=== PATIENT | female | born 1935 | race Caucasian/White ===

== ENCOUNTER 2019-04-24 12:04 | Outpatient (CLI) | payer MEDICARE ==
--- NOTE | 2019-04-24 14:05 | ULT ---
CAROTID DOPPLER: DATE: 04/24/2019. PROVIDED CLINICAL HISTORY: Vertigo. FINDINGS: Campos scale and color Doppler sonography with spectral analysis was performed of the extracranial sanchez tid system bilaterally. Scattered atherosclerotic plaque is demonstrated. No evidence for a hemodyn amically significant internal carotid artery stenosis by peak systolic velocity or ratio criteria. A ntegrade flow is seen in the vertebral arteries. IMPRESSION: No sonographic evidence for a hemodynamically significant internal carotid artery stenosis. POS: OFF
== END 2019-04-24 12:05 | disposition home or self-care (01) ==
LOC: BICULT 12:04
PROVIDERS: ATTEND Internal Medicine
DX: R42 Dizziness and giddiness (principal); R55 Syncope and collapse
CPT/HCPCS: 93880

== ENCOUNTER 2019-05-24 12:12 | Outpatient (CLI) | payer MEDICARE ==
--- NOTE | 2019-05-24 13:37 | MRI ---
MRI LUMBAR SPINE NONCONTRAST: HISTORY: Bilateral lower extremity weakness. COMPARISON: 06/30/2017 FINDINGS: Stable heterogeneous marrow signal intensity of the lumbar vertebra due to a combination of Modic and senescent changes. Type I-type II Modic changes at L5-S1. Spondylolisthesis: 3.2 mm of retrolisthesis of T12 upon L1, 3.8 mm of retrolisthesis of L1 upon L2, 2 .9 mm of anterolisthesis of L4 upon L5. Appropriate signal intensity of the visualized solid organs and paraspinal muscles. Conus medullaris terminates at the mid L1 level. T11-T12: Mild central canal stenosis. T12-L1:Desiccation with mild loss of disc space height. No significant central canal stenosis. Right neural foramen is patent. Mild left foraminal narrowing. L1-L2:Desiccation with mild loss of disc space height. Small left and right paracentral disc bulges. Mild central canal stenosis. Right neural foramen is patent. Mild to moderate left foraminal narrowing. L2-L3:Desiccation without significant loss of disc space height. Generalized disc bulge, ligament fla vum thickening and facet result in mild central canal stenosis. Mild bilateral foraminal narrowing. L3-L4:Desiccation without significant loss of disc space height. Left and right paracentral disc bulg es along with posterior element hypertrophy result in mild central canal stenosis. Bilaterally, neural foramina are patent. L4-L5:Desiccation without significant loss of disc space height. Broad-based disc bulge, ligament fla vum thickening and facet result in moderate central canal stenosis. There is fluid in both facet joints. Moderate bilateral neural foraminal narrowing. L5-S1:Desiccation with severe loss of disc space height. Broad-based disc bulge abuts the ventral the angeline sac. No significant central canal stenosis. There is bilateral facet hypertrophy with moderate to severe bilateral neural foraminal narrowing. T2 hyperintensity at the S2 and S3 level is incompletely evaluated. Findings unchanged from the previ ous exam. IMPRESSION: 1. Multilevel degenerative changes of lumbar spine as described above. Moderate central canal stenosi s at L4-L5. Moderate bilateral foraminal narrowing at L4-L5. Moderate to severe bilateral neural foraminal narrowing at L5-S1. 2. Spondylolisthesis as described above Transcribed Date/Time: 05/24/2019 1:46 PM
== END 2019-05-24 12:13 | disposition home or self-care (01) ==
LOC: BICMRI 12:12
PROVIDERS: ATTEND Psychiatry & Neurology Neurology
DX: R29.898 Other symptoms and signs involving the musculoskeletal system (principal); M48.061 Spinal stenosis, lumbar region without neurogenic claudication; M48.07 Spinal stenosis, lumbosacral region; M47.816 Spondylosis without myelopathy or radiculopathy, lumbar region; M43.16 Spondylolisthesis, lumbar region; M43.15 Spondylolisthesis, thoracolumbar region
CPT/HCPCS: 72148

== ENCOUNTER 2019-07-27 12:50 | Outpatient (CLI) | payer MEDICARE ==
--- NOTE | 2019-07-27 13:38 | MMO ---
Bilateral MAMMO Bilat Screen [facility]. CLINICAL HISTORY: Patient is 83 years old and is seen for screening. The patient has the following family history of breast cancer: paternal grandmother. The patient has no personal history of cancer. VIEWS: The views performed were: bilateral craniocaudal with tomosynthesis and bilateral mediolateral oblique with tomosynthesis. FILMS COMPARED: The present examination has been compared to prior imaging studies performed at [facility] on 07/25/2018, and at [facility] on 08/05/2014, 08/06/2015 and 01/14/2017. This study has been interpreted with the assistance of computer-aided detection. MAMMOGRAM FINDINGS: There are scattered fibroglandular densities. Finding 1: There are stable benign appearing calcifications seen in both breasts. Finding 2: There are stable benign appearing densities seen in both breasts. There are no suspicious masses, suspicious calcifications, or new areas of architectural distortion. IMPRESSION: THERE IS NO MAMMOGRAPHIC EVIDENCE OF MALIGNANCY. A ROUTINE FOLLOW-UP MAMMOGRAM IN 1 YEAR IS RECOMMENDED. THE RESULTS OF THIS EXAM WERE SENT TO THE PATIENT. ACR BI-RADS Category 2 - Benign finding MAMMOGRAPHY NOTE: 1. A negative mammogram report should not delay a biopsy if a dominant of clinically suspicious mass is present. 2. Approximately 10% to 15% of breast cancers are not detected by mammography. 3. Adenosis and dense breasts may obscure an underlying neoplasm. Reported by: KURT GALDAMEZ MD Electonically Signed: [id number]
== END 2019-07-27 12:51 | disposition home or self-care (01) ==
LOC: BICMAMMO 12:50
PROVIDERS: ATTEND Internal Medicine
DX: Z12.31 Encounter for screening mammogram for malignant neoplasm of breast (principal); Z80.3 Family history of malignant neoplasm of breast
CPT/HCPCS: 77063; 77067

== ENCOUNTER 2019-08-21 12:52 | Outpatient (CLI) | payer MEDICARE ==
--- NOTE | 2019-08-21 13:54 | ULT ---
Bilateral renal ultrasound CLINICAL INDICATION: Renal Insufficiency COMPARISON: None FINDINGS: Right kidney: No solid mass, or hydronephrosis. Left kidney: No solid mass, or hydronephrosis. Urinary bladder: Normal IMPRESSION: Unremarkable exam.
== END 2019-08-21 12:53 | disposition home or self-care (01) ==
LOC: BICULT 12:52
PROVIDERS: ATTEND Internal Medicine
DX: R80.9 Proteinuria, unspecified (principal)
CPT/HCPCS: 76770

== ENCOUNTER 2019-11-19 08:45 | Outpatient (CLI) | payer MEDICARE ==
--- NOTE | 2019-11-19 09:18 | CT ---
CT Stone Protocol: 11/19/2019 12:00 AM HISTORY: Microhematuria COMPARISON: 10/13/2015 TECHNIQUE: Multiple contiguous axial images were obtained and a CT of the abdomen and pelvis without IV contrast . Coronal and sagittal reformats were performed. FINDINGS: This examination is limited for the evaluation of solid organs and vascular structures due to the lac k of intravenous contrast. Lower Chest: Large hiatal hernia Abdomen: Liver: within normal limits. Bile Ducts: Normal caliber. Gallbladder: Removed Pancreas: within normal limits. Spleen: within normal limits. Adrenals: within normal limits. Kidneys: within normal limits. Pelvis: Reproductive Organs: No pelvic masses. Ureters: within normal limits. Bladder: within normal limits. Bowel: Normal caliber. Diverticulosis is seen in the sigmoid colon Mesenteric Lymph Nodes: No enlarged mesenteric lymph nodes. Peritoneum: No ascites or free air, no fluid collection. Vessels: Atherosclerotic calcifications in the aorta Retroperitoneum: within normal limits. Abdominal Wall: within normal limits. Bones: Degenerative changes in the spine. IMPRESSION: 1. No evidence of acute intraabdominal or pelvic abnormality. 2. Large hiatal hernia 3. Diverticulosis
== END 2019-11-19 08:46 | disposition home or self-care (01) ==
LOC: BICCT 08:45
PROVIDERS: ATTEND Urology
DX: R31.29 Other microscopic hematuria (principal); K44.9 Diaphragmatic hernia without obstruction or gangrene; K57.30 Diverticulosis of large intestine without perforation or abscess without bleeding
CPT/HCPCS: 74176

== ENCOUNTER 2021-01-01 14:11 | Outpatient (CLI) | payer MEDICARE | END 2021-01-01 14:12 | disposition home or self-care (01) | LOC: BICCT 14:11 | PROVIDERS: ATTEND Internal Medicine Cardiovascular Disease | DX: I48.0 Paroxysmal atrial fibrillation (principal); I70.0 Atherosclerosis of aorta; I25.10 Atherosclerotic heart disease of native coronary artery without angina pectoris; K44.9 Diaphragmatic hernia without obstruction or gangrene; Z90.49 Acquired absence of other specified parts of digestive tract | CPT/HCPCS: 71250 ==

== ENCOUNTER 2021-08-27 12:28 | Outpatient (CLI) | payer MEDICARE | END 2021-08-27 12:29 | disposition home or self-care (01) | LOC: BICMAMMO 12:28 | PROVIDERS: ATTEND Internal Medicine | DX: Z12.31 Encounter for screening mammogram for malignant neoplasm of breast (principal); Z80.3 Family history of malignant neoplasm of breast | CPT/HCPCS: 77063; 77067 ==

== ENCOUNTER 2022-02-26 10:34 | Outpatient (CLI) | payer MEDICARE ==
[2022-02-26 12:28] LABS: #Basophils 0.1 10x3/uL (0.0-0.2); #Eosinphils 0.2 10x3/uL (0.0-0.5); #Monocytes 0.9 10x3/uL (0.0-1.1); #Neutrophils 5.5 10x3/uL (1.5-8.4); %Basophils 0.8 % (0.0-2.0); %Eosinophils 2.1 % (0.0-6.0); %Lymphocytes 22.1 % (18.0-47.0); %Monocytes 10.6 % (0.0-10.0); %Neutrophils 64.2 % (40.0-75.0); Hemoglobin 12.7 g/dL (12.0-15.5); Mean Corpuscular HGB CONC 33.5 g/dL (32.0-36.0); Mean Corpuscular Hemoglobin 33.2 pg (27.0-33.0); Mean Platelet Volume 9.6 fl (7.4-10.4); Platelet Count 306 10x3/uL (150-450); RBC Distribution Width 14.6 % (11.5-14.5); Red Blood Cell (RBC) Count 3.83 10x6/uL (3.90-5.03); White Blood Cell (WBC) Count 8.6 10x3/uL (3.5-10.5)
[2022-02-26 12:48] LABS: ALT (SGPT) 26 U/L (8-55); AST (SGOT) 22 U/L (5-34); Albumin 4.4 g/dL (3.4-4.8); Alkaline Phosphatase 76 U/L (40-110); Anion Gap 14 mmol/L (10-20); BUN (Urea Nitrogen) 23 mg/dL (9.8-20.1); Bilirubin, Total 0.5 mg/dL (0.2-1.2); Calc. Creatinine Clearance 0 mL/min (70-130); Calcium 10.2 mg/dL (7.8-10.44); Carbon Dioxide 23 mmol/L (23-31); Chloride 103 mmol/L (98-107); Globulin 2.7 g/dL (2.4-3.5); Glucose 100 mg/dL (83-110); Potassium 4.6 mmol/L (3.5-5.1); Protein, Total 7.1 g/dL (5.8-8.1); Sodium 135 mmol/L (136-145)
[2022-02-26 19:08] LABS: SARS-CoV-2 PCR by NAA Not Detected (NotDetected)
== END 2022-02-26 10:35 | disposition home or self-care (01) ==
LOC: LABBT 10:34
PROVIDERS: ATTEND Surgery
DX: Z01.818 Encounter for other preprocedural examination (principal); K21.9 Gastro-esophageal reflux disease without esophagitis; K44.9 Diaphragmatic hernia without obstruction or gangrene; Z20.822 Contact with and (suspected) exposure to COVID-19
CPT/HCPCS: 80053; 85025; U0003; U0005

== ENCOUNTER 2022-02-26 10:45 | Inpatient (IN) | payer MEDICARE ==
[2022-03-01 15:02] VITALS: BMI 29.1
[2022-03-03] MEDS ORDERED: Bupivacaine 0.25% 10 ML VIAL ONE (09:44)
[2022-03-03] MEDS ORDERED: Lidocaine 1% w/Epinephrine 1:100K 20 ML VIAL ONE (09:44)
[2022-03-03] MEDS ORDERED: Fentanyl 250 MCG/5 ML VIAL ONE (09:49)
[2022-03-03] MEDS ORDERED: Famotidine/PF 20 mg/2ml Vial ONE (09:49)
[2022-03-03] MEDS ORDERED: Phenylephrine 10 MG/ML VIAL ONE (09:49)
[2022-03-03] MEDS ORDERED: hydrALAZINE 20 MG/ML VIAL ONE (09:49)
[2022-03-03] MEDS ORDERED: ceFAZolin (BATCH) 2 GM/100 ML BAG ONE (09:56)
[2022-03-03] MEDS ORDERED: Ondansetron PF 4 MG/2 ML Vial ONE (10:12)
[2022-03-03] MEDS ORDERED: Rocuronium Bromide 10 MG/ML (10ML VIAL) ONE (10:12)
[2022-03-03] MEDS ORDERED: Lidocaine 1% PF 5 ML VIAL ONE (10:12)
[2022-03-03] MEDS ORDERED: Glycopyrrolate 0.2 MG/ML 5 ML SYRINGE ONE (10:12)
[2022-03-03] MEDS ORDERED: PROPOFOL 200 MG/20 ML VIAL ONE (10:12)
[2022-03-03] MEDS ORDERED: Promethazine HCl 25 MG/ML VIAL IVPB PRN (10:58)
[2022-03-03] MEDS ORDERED: PACU-Morphine 4MG/ML VIAL SLOW IVP PRN (10:58)
[2022-03-03] MEDS ORDERED: Promethazine HCl 25 MG/ML VIAL IM PRN ×2 (10:58→12:48)
[2022-03-03] MEDS ORDERED: fentaNYL Citrate/PF 100 MCG/2 ML SYRINGE ONE (12:25)
[2022-03-03] MEDS ORDERED: Dextrose 5% in Water 1,000 ML IV PRN (12:48)
[2022-03-03] MEDS ORDERED: diphenhydrAMINE 50 MG/ML VIAL IVP PRN (12:48)
[2022-03-03] MEDS ORDERED: Morphine 2 MG/ML VIAL SLOW IVP PRN (12:48)
[2022-03-03] MEDS ORDERED: Ondansetron PF 4 MG/2 ML Vial IVP PRN (12:48)
[2022-03-03] MEDS ORDERED: hydrALAZINE 20 MG/ML VIAL SLOW IVP PRN (12:48)
[2022-03-03] MEDS ORDERED: Hydrocodone-Acetamin 15 ML UDCUP PO PRN (12:48)
[2022-03-03] MEDS ORDERED: Morphine 4 MG/ML VIAL SLOW IVP PRN (12:48)
[2022-03-03] MEDS ORDERED: Dextrose 50% Abboject 50 ML SYRINGE SLOW IVP PRN (12:48)
[2022-03-03] MEDS ORDERED: ceFAZolin 2 GM/Dextrose 50 ML 2 GM in Premix Bag 1 BAG IVPB SCH (14:00)
[2022-03-03] MEDS: D5 1/2 NS w/20 mEq KCL 1,000 ML IV SCH ×3 (14:06→23:30)
[2022-03-03] MEDS: ceFAZolin (BATCH) 2 GM in Premix Bag 1 BAG IVPB SCH ×2 (14:15→21:27)
[2022-03-03] MEDS: Ketorolac Tromethamine 30 MG/ML VIAL IVP SCH ×2 (17:53→23:33)
[2022-03-04 04:53] VITALS: BP 135/64; TEMP 98.4
[2022-03-04] MEDS: D5 1/2 NS w/20 mEq KCL 1,000 ML IV SCH (04:55)
[2022-03-04] MEDS: Ketorolac Tromethamine 30 MG/ML VIAL IVP SCH (04:57)
[2022-03-04 07:18] LABS: Hemoglobin 10.5 g/dL (12.0-16.0); Mean Corpuscular HGB CONC 33.9 g/dL (32.0-36.0); Mean Corpuscular Hemoglobin 36.3 pg (27.0-31.0); Mean Platelet Volume 7.2 fL (7.4-10.4); Platelet Count 204 thou/uL (130-400); RBC Distribution Width 12.8 % (11.5-14.5); Red Blood Cell (RBC) Count 2.89 mill/uL (4.20-5.40); White Blood Cell (WBC) Count 8.5 thou/uL (4.8-10.8)
[2022-03-04 07:19] LABS: #Eosinphils 0.1 thou/uL (0.0-0.7); #Lymphocytes 1.7 thou/uL (1.20-3.40); #Monocytes 0.9 thou/uL (0.11-0.59); #Neutrophils 5.8 thou/uL (1.40-6.50); %Basophils 0.4 % (0.0-1.0); %Eosinophils 1.6 % (0.0-10.0); %Lymphocytes 19.3 % (21.0-51.0); %Monocytes 10.8 % (0.0-10.0); %Neutrophils 67.9 % (42.0-75.0)
[2022-03-04 07:37] LABS: Anion Gap 12 mmol/L (10-20); BUN (Urea Nitrogen) 19 mg/dL (9.8-20.1); Calc. Creatinine Clearance 38 mL/min (70-130); Calcium 8.2 mg/dL (7.8-10.44); Carbon Dioxide 23 mmol/L (23-31); Chloride 108 mmol/L (98-107); Glucose 99 mg/dL (83-110); Potassium 4.5 mmol/L (3.5-5.1); Sodium 138 mmol/L (136-145)
[2022-03-04 08:12] LABS: MDiff Complete? YES; Macrocytosis SLIGHT = 6-15 cells (100X) (0-5/hpf); Platelet Morphology Comment Appears Adequate; Polychromasia SLIGHT = 2-3 cells (100X) (0-2/hpf)
[2022-03-04] MEDS ORDERED: Enoxaparin Sodium 40 MG/0.4 ML SYRINGE SC SCH (09:00)
[2022-03-04] MEDS ORDERED: Pantoprazole 40 MG VIAL IVP SCH (09:00)
== END 2022-03-04 11:00 | disposition home or self-care (01) | DRG 328 ==
LOC: SURG A 03-03 07:11
PROVIDERS: ADMIT Surgery; ATTEND Surgery
PROC: 0BQT4ZZ Repair Diaphragm, Percutaneous Endoscopic Approach (ICD-10-PCS; principal; 2022-03-03)
PROC: 0DQ44ZZ Repair Esophagogastric Junction, Percutaneous Endoscopic Approach (ICD-10-PCS; 2022-03-03)
PROC: 8E0W4CZ Robotic Assisted Procedure of Trunk Region, Percutaneous Endoscopic Approach (ICD-10-PCS; 2022-03-03)
DX: K44.9 Diaphragmatic hernia without obstruction or gangrene (principal); K21.9 Gastro-esophageal reflux disease without esophagitis; Z20.822 Contact with and (suspected) exposure to COVID-19; I10 Essential (primary) hypertension; J30.9 Allergic rhinitis, unspecified; M81.0 Age-related osteoporosis without current pathological fracture; Z91.040 Latex allergy status; Z91.048 Other nonmedicinal substance allergy status; Z88.8 Allergy status to other drugs, medicaments and biological substances; Z79.51 Long term (current) use of inhaled steroids; Z79.899 Other long term (current) drug therapy; Z87.440 Personal history of urinary (tract) infections; Z90.49 Acquired absence of other specified parts of digestive tract
CPT/HCPCS: 36415; 80048; 85025; C9113; J0360; J0690; J1650; J1885; J2370; J2405; J2704; J3010; J3480; S0020; S0028

== ENCOUNTER 2022-12-23 09:00 | Outpatient (CLI) | payer MEDICARE | END 2022-12-23 09:01 | disposition home or self-care (01) | LOC: LABBT 09:00 | PROVIDERS: ATTEND Internal Medicine Cardiovascular Disease | DX: Z01.812 Encounter for preprocedural laboratory examination (principal); I48.0 Paroxysmal atrial fibrillation | CPT/HCPCS: 80053; 81003; 85027; 85610; 85730; 86850; 86900; 86901; 93005; 93010 ==

== ENCOUNTER 2022-12-23 11:00 | Inpatient (IN) | payer MEDICARE ==
[2022-12-23 10:24] LABS: Bilirubin Neg (Negative); Blood, Urine Negative (Negative); Clarity Cloudy (Clear); Glucose, Urine (Dipstick) Normal (Negative); Ketone, Urine Negative (Negative); Leukocyte 100 (Negative); Nitrite Negative (Negative); Protein, Urine (Dipstick) Negative (Neg-Trace); Specific Gravity, Urine 1.015 (1.005-1.030); Urobilinogen Normal mg/dL (Less than 2)
[2022-12-23 10:24] LABS: Hemoglobin 11.8 g/dL (12.0-15.5); Mean Corpuscular HGB CONC 32.9 g/dL (32.0-36.0); Mean Corpuscular Hemoglobin 32.8 pg (27.0-33.0); Mean Corpuscular Volume 99.7 fl (81.6-98.3); Platelet Count 276 10x3/uL (150-450); RBC Distribution Width 14.6 % (11.5-14.5); White Blood Cell (WBC) Count 7.4 10x3/uL (3.5-10.5)
[2022-12-23 10:39] LABS: PTT 34.8 sec (22.0-33.0); Prothrombin Time 11.1 sec (9.5-12.1)
[2022-12-23 10:45] LABS: ALT (SGPT) 26 U/L (8-55); AST (SGOT) 26 U/L (5-34); Albumin 4.3 g/dL (3.4-4.8); Alkaline Phosphatase 75 U/L (40-110); Anion Gap 14 mmol/L (10-20); BUN (Urea Nitrogen) 24 mg/dL (9.8-20.1); Bilirubin, Total 0.4 mg/dL (0.2-1.2); Calc. Creatinine Clearance 0 mL/min (70-130); Calcium 9.5 mg/dL (7.8-10.44); Carbon Dioxide 19 mmol/L (23-31); Chloride 108 mmol/L (98-107); Estimated GFR 41; Globulin 2.8 g/dL (2.4-3.5); Glucose 101 mg/dL (83-110); Potassium 4.2 mmol/L (3.5-5.1); Protein, Total 7.1 g/dL (5.8-8.1); Sodium 137 mmol/L (136-145)
[2022-12-29] MEDS ORDERED: CEFAZOLIN 1 GM VIAL ONE (07:55)
[2022-12-29] MEDS ORDERED: Protamine Sulfate 50 MG/5 ML VIAL ONE (07:55)
[2022-12-29] MEDS ORDERED: Heparin 10,000 UNITS/ 10 ML VIAL ONE (07:55)
[2022-12-29] MEDS ORDERED: Esmolol 100 MG/10 ML VIAL ONE (12:49)
[2022-12-29] MEDS ORDERED: Ondansetron PF 4 MG/2 ML Vial ONE (12:49)
[2022-12-29] MEDS ORDERED: Lidocaine 1% PF 5 ML VIAL ONE (12:49)
[2022-12-29] MEDS ORDERED: PROPOFOL 200 MG/20 ML VIAL ONE (12:49)
[2022-12-29] MEDS ORDERED: Rocuronium Bromide 10 MG/ML (10ML VIAL) ONE (12:49)
[2022-12-29] MEDS ORDERED: Dexamethasone 20 MG/5 ML VIAL ONE (12:49)
[2022-12-29] MEDS ORDERED: SUGAMMADEX SODIUM 200 MG/2 ML VIAL ONE (12:55)
[2022-12-29] MEDS ORDERED: FENTANYL 50 MCG/ML 1 ML VIAL ONE (12:55)
[2022-12-29] MEDS ORDERED: Ondansetron ODT 4 MG TAB PO PRN (16:10)
[2022-12-29] MEDS ORDERED: Azelastine 137 MCG/Spray 30 ML NS PRN (16:12)
[2022-12-29] MEDS ORDERED: Acetaminophen/Codeine 30-300mg Tablet PO PRN ×2 (16:15)
[2022-12-29 16:38] LABS: SARS-CoV-2 NAA Rapid Test Not Detected (NotDetected)
[2022-12-29] MEDS ORDERED: Iopamidol 370 76% 100 ML VIAL ONE (17:08)
[2022-12-29 17:37] VITALS: BMI 25.6
[2022-12-29] MEDS: Apixaban 5 MG TAB PO SCH (20:12)
[2022-12-29] MEDS ORDERED: Melatonin 3 MG TAB PO SCH (21:00)
[2022-12-29] MEDS ORDERED: Ezetimibe 10 MG TAB PO SCH (21:00)
[2022-12-30] MEDS ORDERED: Calcitriol 0.25 MCG CAP PO SCH (09:00)
[2022-12-30] MEDS ORDERED: Fish Oil 1,000 MG CAP PO SCH (09:00)
[2022-12-30] MEDS ORDERED: Losartan 25 MG TAB PO SCH (09:00)
[2022-12-30] MEDS ORDERED: Cyanocobalamin (Vitamin B-12) 1,000 MCG TAB PO SCH (09:00)
[2022-12-30] MEDS: Apixaban 5 MG TAB PO SCH (09:44)
[2022-12-30 11:38] VITALS: BP 164/70; TEMP 98
[2023-01-01] MEDS ORDERED: FLU VACC QS2022-23(65YR UP)/PF 240 MCG/0.7 ML SYRINGE IM ONE (18:15)
== END 2022-12-30 12:23 | disposition home or self-care (01) | DRG 274 ==
LOC: SURG A 12-29 07:15 → 2NO 12-29 17:33
PROVIDERS: ADMIT Internal Medicine Cardiovascular Disease; ATTEND Internal Medicine Cardiovascular Disease
PROC: 02L73DK Occlusion of Left Atrial Appendage with Intraluminal Device, Percutaneous Approach (ICD-10-PCS; principal; 2022-12-29)
PROC: B24BZZ4 Ultrasonography of Heart with Aorta, Transesophageal (ICD-10-PCS; 2022-12-29)
DX: I48.0 Paroxysmal atrial fibrillation (principal); Z00.6 Encounter for examination for normal comparison and control in clinical research program; Z20.822 Contact with and (suspected) exposure to COVID-19; M19.90 Unspecified osteoarthritis, unspecified site; E78.5 Hyperlipidemia, unspecified; I10 Essential (primary) hypertension; Z79.01 Long term (current) use of anticoagulants; Z91.040 Latex allergy status; Z91.048 Other nonmedicinal substance allergy status; Z88.8 Allergy status to other drugs, medicaments and biological substances; Z79.899 Other long term (current) drug therapy; Z98.890 Other specified postprocedural states
CPT/HCPCS: 33340; 80053; 81003; 85027; 85347; 85610; 85730; 86850; 86900; 86901; 93306; 93312; C1725; C1759; C1760; C1769; C1894; J0690; J1100; J1644; J2405; J2704; J2720; J3010; Q9967; U0002

== ENCOUNTER 2023-02-18 09:47 | Day surgery (SDC) | payer MEDICARE ==
[2023-02-17 10:37] VITALS: BMI 25.0
[2023-02-18 10:59] LABS: Hemoglobin 12.7 g/dL (12.0-16.0); Mean Corpuscular HGB CONC 33.4 g/dL (32.0-36.0); Mean Corpuscular Hemoglobin 34.2 pg (27.0-31.0); Mean Platelet Volume 7.8 fL (7.4-10.4); Platelet Count 191 10x3/uL (130-400); RBC Distribution Width 12.2 % (11.5-14.5)
[2023-02-18 11:20] LABS: Anion Gap 14 mmol/L (10-20); BUN (Urea Nitrogen) 23 mg/dL (9.8-20.1); Calc. Creatinine Clearance 37 mL/min (70-130); Carbon Dioxide 20 mmol/L (23-31); Chloride 108 mmol/L (98-107); Estimated GFR 46; Glucose 96 mg/dL (83-110); Potassium 3.8 mmol/L (3.5-5.1); Sodium 138 mmol/L (136-145)
[2023-02-18] MEDS ORDERED: PROPOFOL 200 MG/20 ML VIAL ONE (13:37)
== END 2023-02-18 15:14 | disposition home or self-care (01) ==
LOC: SDC 09:47
PROVIDERS: ATTEND Internal Medicine Cardiovascular Disease
PROC: B246ZZ4 Ultrasonography of Right and Left Heart, Transesophageal (ICD-10-PCS; principal; 2023-02-18)
DX: I48.0 Paroxysmal atrial fibrillation (principal); I08.1 Rheumatic disorders of both mitral and tricuspid valves; I70.0 Atherosclerosis of aorta; E78.00 Pure hypercholesterolemia, unspecified; E89.0 Postprocedural hypothyroidism; M19.90 Unspecified osteoarthritis, unspecified site; I10 Essential (primary) hypertension; Z79.01 Long term (current) use of anticoagulants; Z79.899 Other long term (current) drug therapy; Z88.5 Allergy status to narcotic agent; Z91.040 Latex allergy status; Z91.048 Other nonmedicinal substance allergy status; Z95.818 Presence of other cardiac implants and grafts
CPT/HCPCS: 36415; 80048; 85027; 93312; J2704

== ENCOUNTER 2023-09-19 08:56 | Outpatient (CLI) | payer MEDICARE | END 2023-09-19 08:57 | disposition home or self-care (01) | LOC: BICMAMMO 08:56 | PROVIDERS: ATTEND Internal Medicine | DX: Z12.31 Encounter for screening mammogram for malignant neoplasm of breast (principal); Z80.3 Family history of malignant neoplasm of breast | CPT/HCPCS: 77063; 77067 ==

== ENCOUNTER 2023-11-17 09:48 | Outpatient (CLI) | payer MEDICARE | END 2023-11-17 09:49 | disposition home or self-care (01) | LOC: BICMAMMO 09:48 | PROVIDERS: ATTEND Internal Medicine | DX: Z13.820 Encounter for screening for osteoporosis (principal); Z78.0 Asymptomatic menopausal state; M85.851 Other specified disorders of bone density and structure, right thigh; M85.852 Other specified disorders of bone density and structure, left thigh | CPT/HCPCS: 77080 ==